=== PATIENT | male | born 1945 | race Caucasian/White ===

== ENCOUNTER 2023-11-27 11:05 | Inpatient (IN) ==
[2023-11-27] MEDS ORDERED: Lactated Ringers 1000 ml BAG 1,000 ML IV ONE ×2 (11:45→13:01)
[2023-11-27 12:18] LABS: ABS Basophils 0.2 10^3/uL (0.0-0.1); ABS Lymphocytes 1.6 10^3/uL (1.0-4.8); ABS Monocytes 1.4 10^3/uL (0.0-1.1); ABS Neutrophils 11.4 10^3/uL (1.5-7.6); Hematocrit 36.6 % (38-53); Hemoglobin 11.8 g/dL (13.2-16.3); Lymphocyte % 11.1 %; Mean Corpuscular Hemoglobin 25.3 pg (27-33); Mean Corpuscular Hgb Conc 32.3 g/dL (31-36); Mean Corpuscular Volume 78.5 fL (80-97); Mean Platelet Volume 7.1 fL (7.5-11.2); Platelet Count 484 10^3/uL (150-450); Red Blood Count 4.66 10^6/uL (4.06-5.63); Red Cell Distribution Width 21.1 % (12-17); White Blood Count 14.6 10^3/uL (3.6-10.2)
[2023-11-27 12:41] LABS: ALT 73 U/L (7-52); Albumin 3.6 g/dL (3.2-5.2); Albumin/Globulin Ratio 0.8 (1-3); Alkaline Phosphatase 286 U/L (35-149); Anion Gap 15 mmol/L (2-16); Blood Urea Nitrogen 65 mg/dL (6-24); C Reactive Protein 183.21 mg/L (<8.01); CO2 Carbon Dioxide 20 mmol/L (22-32); Calcium 8.6 mg/dL (8.6-10.3); Chloride 101 mmol/L (101-111); Creatinine, Serum 1.78 mg/dL (0.67-1.17); Globulin 4.8 g/dL (2-4); Glucose 198 mg/dL (70-100); Magnesium 1.4 mg/dL (1.9-2.7); Sodium 136 mmol/L (135-145); Total Bilirubin 0.9 mg/dL (0.2-1.0); Total Protein 8.4 g/dL (6.4-8.9); eGFR CKD-EPI 39.3 (>60)
[2023-11-27] MEDS ORDERED: Magnesium Sulfate 2 gm BAG 2 GM/50 ML BAG IVPB ONE (13:01)
[2023-11-27] MEDS ORDERED: Iodixanol (CONTRAST) 320 MG/ML 100 ML SDV IV ONE (13:29)
[2023-11-27] MEDS ORDERED: Piperacillin/Tazobac 3.375 BAG 3.375 GM/100 ML BAG IV ONE ×3 (14:24→21:00)
[2023-11-27] MEDS ORDERED: Lactated Ringers 1000 ml BAG 1,000 ML IV SCH (17:00)
[2023-11-27 18:15] LABS: Calcium 8.4 mg/dL (8.6-10.3); Creatinine, Serum 1.51 mg/dL (0.67-1.17); eGFR CKD-EPI 47.9 (>60)
[2023-11-27] MEDS ORDERED: Zosyn per Pharmacy NOTE FOLLOW UP SCH (20:24)
[2023-11-27] MEDS ORDERED: Ondansetron 4 mg VIAL 2 MG/ML 2 ml VIAL IV PRN (20:24)
[2023-11-27] MEDS ORDERED: Dextrose 50% Syringe 50 ml 25 GM/50 ML SYRINGE IV PUSH PRN (20:24)
[2023-11-27] MEDS ORDERED: Calcium Polycarbophil 625mg TB PO SCH (21:00)
[2023-11-27] MEDS: Sodium Bicarb 650 mg (ANTACID) TAB PO SCH (22:29)
[2023-11-27] MEDS: Lactated Ringers 1000 ml BAG 1,000 ML IV SCH (22:32)
[2023-11-27] MEDS: Enoxaparin 30 MG/0.3 ML SYR SUBCUT SCH (22:39)
[2023-11-27] MEDS: Insulin GLARGINE 100 un/ml 10 ml VIAL SUBCUT SCH (22:55)
[2023-11-28] MEDS: Calcium Polycarbophil 625mg TB PO SCH ×3 (00:58→23:22)
[2023-11-28] MEDS ORDERED: ZOSYN 3.375 GM Q8H per EXTENDED INFUSION IV SCH ×2 (03:30)
[2023-11-28 06:44] LABS: ABS Basophils 0.1 10^3/uL (0.0-0.1); ABS Lymphocytes 1.1 10^3/uL (1.0-4.8); ABS Monocytes 1.1 10^3/uL (0.0-1.1); ABS Neutrophils 8.6 10^3/uL (1.5-7.6); ABS Nucleated RBC 0.01 10^3/ul; Eosinophil % 0.3 %; Hematocrit 32.7 % (38-53); Hemoglobin 10.4 g/dL (13.2-16.3); Lymphocyte % 10.2 %; Mean Corpuscular Hemoglobin 24.8 pg (27-33); Mean Corpuscular Hgb Conc 31.8 g/dL (31-36); Mean Platelet Volume 6.8 fL (7.5-11.2); Platelet Count 346 10^3/uL (150-450); Red Blood Count 4.19 10^6/uL (4.06-5.63); Red Cell Distribution Width 21.9 % (12-17)
[2023-11-28 07:01] LABS: Albumin 2.8 g/dL (3.2-5.2); Albumin/Globulin Ratio 0.8 (1-3); Creatinine, Serum 1.24 mg/dL (0.67-1.17); Globulin 3.6 g/dL (2-4); Potassium 3.9 mmol/L (3.5-5.0); Total Protein 6.4 g/dL (6.4-8.9); eGFR CKD-EPI 60.6 (>60)
[2023-11-28 08:15] LABS: Magnesium 1.7 mg/dL (1.9-2.7)
[2023-11-28] MEDS: Lactated Ringers 1000 ml BAG 1,000 ML IV SCH ×2 (08:29→18:24)
[2023-11-28] MEDS ORDERED: DAPAGLIFLOZIN 5 MG TAB (NF) PO SCH (09:00)
[2023-11-28] MEDS: Insulin GLARGINE 100 un/ml 10 ml VIAL SUBCUT SCH ×2 (09:28→22:50)
[2023-11-28] MEDS: Sodium Bicarb 650 mg (ANTACID) TAB PO SCH ×2 (09:29→23:12)
[2023-11-28] MEDS: Aspirin EC 81 mg TAB.EC (enteric coated) PO SCH (09:29)
[2023-11-28] MEDS ORDERED: Magnesium Sulfate 2 gm BAG 2 GM/50 ML BAG IVPB ONE (09:58)
[2023-11-28 13:31] LABS: Carcinoembryonic Antigen 4.3 ng/mL (0.1-5.0)
[2023-11-28 15:28] LABS: % Iron Saturation 11 % (15-55); .Transferrin 128 mg/dL (203-362); Iron < 20 ug/dL (50-212); Total Iron Binding Capacity 179 mcg/dL (250-450); Unsaturated Iron Binding 159 ug/dL
[2023-11-28 21:44] LABS: Ferritin 1792.1 ng/mL (24-336)
[2023-11-28] MEDS: Enoxaparin 30 MG/0.3 ML SYR SUBCUT SCH (23:13)
[2023-11-29] MEDS: Lactated Ringers 1000 ml BAG 1,000 ML IV SCH ×2 (04:33→15:07)
[2023-11-29 06:27] LABS: ABS Basophils 0.1 10^3/uL (0.0-0.1); ABS Eosinophils 0.1 10^3/uL (0.0-0.5); ABS Monocytes 0.8 10^3/uL (0.0-1.1); ABS Neutrophils 8.3 10^3/uL (1.5-7.6); ABS Nucleated RBC 0.02 10^3/ul; Eosinophil % 0.6 %; Hematocrit 32.2 % (38-53); Hemoglobin 10.2 g/dL (13.2-16.3); Lymphocyte % 17.4 %; Mean Corpuscular Hemoglobin 24.9 pg (27-33); Mean Corpuscular Hgb Conc 31.8 g/dL (31-36); Mean Corpuscular Volume 78.3 fL (80-97); Mean Platelet Volume 7.5 fL (7.5-11.2); Nucleated Red Blood Cells % 0.1 %/100WBC (0.0-0.8); Platelet Count 344 10^3/uL (150-450); Red Cell Distribution Width 21.2 % (12-17); White Blood Count 11.2 10^3/uL (3.6-10.2)
[2023-11-29 06:43] LABS: Calcium 8.6 mg/dL (8.6-10.3); Creatinine, Serum 1.05 mg/dL (0.67-1.17); Magnesium 2.2 mg/dL (1.9-2.7); Potassium 3.5 mmol/L (3.5-5.0)
[2023-11-29] MEDS: Aspirin EC 81 mg TAB.EC (enteric coated) PO SCH (09:35)
[2023-11-29] MEDS: Calcium Polycarbophil 625mg TB PO SCH ×2 (09:35→22:43)
[2023-11-29] MEDS: Sodium Bicarb 650 mg (ANTACID) TAB PO SCH ×2 (09:36→22:44)
[2023-11-29] MEDS ORDERED: Albuterol HFA INHALER 8 gm MDI INH PRN (10:06)
[2023-11-29] MEDS: Insulin GLARGINE 100 un/ml 10 ml VIAL SUBCUT SCH ×3 (10:11→22:43)
[2023-11-29] MEDS: SPIRIVA Respimat (tiotropium) 2.5 mcg/inh Inhaler INH SCH (16:09)
[2023-11-29] MEDS ORDERED: Lactated Ringers 1000 ml BAG 1,000 ML IV ONE (18:40)
[2023-11-29] MEDS: Enoxaparin 40 MG/0.4 ML SYR SUBCUT SCH (22:43)
[2023-11-30 06:55] LABS: ABS Basophils 0.1 10^3/uL (0.0-0.1); ABS Eosinophils 0.2 10^3/uL (0.0-0.5); ABS Lymphocytes 1.7 10^3/uL (1.0-4.8); ABS Monocytes 1.1 10^3/uL (0.0-1.1); ABS Neutrophils 7.1 10^3/uL (1.5-7.6); ABS Nucleated RBC 0.01 10^3/ul; Eosinophil % 1.6 %; Hematocrit 29.2 % (38-53); Hemoglobin 9.4 g/dL (13.2-16.3); Lymphocyte % 17.2 %; Mean Corpuscular Hemoglobin 25.2 pg (27-33); Mean Corpuscular Hgb Conc 32.2 g/dL (31-36); Mean Corpuscular Volume 78.2 fL (80-97); Nucleated Red Blood Cells % 0.1 %/100WBC (0.0-0.8); Platelet Count 373 10^3/uL (150-450); Red Blood Count 3.73 10^6/uL (4.06-5.63); Red Cell Distribution Width 21.4 % (12-17); White Blood Count 10.2 10^3/uL (3.6-10.2)
[2023-11-30 07:23] LABS: Calcium 8.4 mg/dL (8.6-10.3); Creatinine, Serum 1.04 mg/dL (0.67-1.17); Potassium 3.9 mmol/L (3.5-5.0); eGFR CKD-EPI 74.9 (>60)
[2023-11-30] MEDS: SPIRIVA Respimat (tiotropium) 2.5 mcg/inh Inhaler INH SCH (08:00)
[2023-11-30] MEDS: Calcium Polycarbophil 625mg TB PO SCH ×2 (09:59→23:11)
[2023-11-30] MEDS: Sodium Bicarb 650 mg (ANTACID) TAB PO SCH ×2 (09:59→23:10)
[2023-11-30] MEDS: Aspirin EC 81 mg TAB.EC (enteric coated) PO SCH (09:59)
[2023-11-30] MEDS: Insulin GLARGINE 100 un/ml 10 ml VIAL SUBCUT SCH ×2 (10:00→23:10)
[2023-11-30] MEDS: Lactated Ringers 1000 ml BAG 1,000 ML IV SCH (16:57)
[2023-11-30] MEDS: Enoxaparin 40 MG/0.4 ML SYR SUBCUT SCH (23:13)
[2023-12-01] MEDS: Lactated Ringers 1000 ml BAG 1,000 ML IV SCH ×2 (03:47→22:37)
[2023-12-01] MEDS: SPIRIVA Respimat (tiotropium) 2.5 mcg/inh Inhaler INH SCH (07:34)
[2023-12-01] MEDS: Calcium Polycarbophil 625mg TB PO SCH ×2 (10:01→22:42)
[2023-12-01] MEDS: Sodium Bicarb 650 mg (ANTACID) TAB PO SCH ×2 (10:02→22:42)
[2023-12-01] MEDS: Insulin GLARGINE 100 un/ml 10 ml VIAL SUBCUT SCH ×2 (10:02→22:54)
[2023-12-01] MEDS: Aspirin EC 81 mg TAB.EC (enteric coated) PO SCH (10:02)
[2023-12-01] MEDS: Enoxaparin 40 MG/0.4 ML SYR SUBCUT SCH (22:40)
[2023-12-02 06:08] LABS: ABS Basophils 0.1 10^3/uL (0.0-0.1); ABS Eosinophils 0.3 10^3/uL (0.0-0.5); ABS Lymphocytes 2.1 10^3/uL (1.0-4.8); ABS Monocytes 0.7 10^3/uL (0.0-1.1); ABS Neutrophils 6.7 10^3/uL (1.5-7.6); ABS Nucleated RBC 0.01 10^3/ul; Eosinophil % 3.1 %; Hematocrit 29.2 % (38-53); Hemoglobin 9.4 g/dL (13.2-16.3); Lymphocyte % 21.4 %; Mean Corpuscular Hemoglobin 25.1 pg (27-33); Mean Corpuscular Hgb Conc 32.1 g/dL (31-36); Mean Corpuscular Volume 78.1 fL (80-97); Mean Platelet Volume 7.1 fL (7.5-11.2); Nucleated Red Blood Cells % 0.1 %/100WBC (0.0-0.8); Platelet Count 449 10^3/uL (150-450); Red Blood Count 3.74 10^6/uL (4.06-5.63); Red Cell Distribution Width 21.5 % (12-17); White Blood Count 9.8 10^3/uL (3.6-10.2)
[2023-12-02 06:31] LABS: Calcium 8.9 mg/dL (8.6-10.3); Creatinine, Serum 1.01 mg/dL (0.67-1.17); Potassium 4.4 mmol/L (3.5-5.0); eGFR CKD-EPI 77.6 (>60)
[2023-12-02] MEDS: Sodium Bicarb 650 mg (ANTACID) TAB PO SCH ×2 (08:15→22:08)
[2023-12-02] MEDS: Calcium Polycarbophil 625mg TB PO SCH ×2 (08:15→22:07)
[2023-12-02] MEDS: Aspirin EC 81 mg TAB.EC (enteric coated) PO SCH (08:16)
[2023-12-02] MEDS: SPIRIVA Respimat (tiotropium) 2.5 mcg/inh Inhaler INH SCH (08:28)
[2023-12-02] MEDS: Insulin GLARGINE 100 un/ml 10 ml VIAL SUBCUT SCH ×2 (08:40→22:17)
[2023-12-02] MEDS: Lactated Ringers 1000 ml BAG 1,000 ML IV SCH (08:42)
[2023-12-02] MEDS: Enoxaparin 40 MG/0.4 ML SYR SUBCUT SCH (21:54)
[2023-12-03] MEDS: SPIRIVA Respimat (tiotropium) 2.5 mcg/inh Inhaler INH SCH (07:06)
[2023-12-03] MEDS: Calcium Polycarbophil 625mg TB PO SCH ×2 (08:13→20:21)
[2023-12-03] MEDS: Sodium Bicarb 650 mg (ANTACID) TAB PO SCH ×2 (08:13→20:20)
[2023-12-03] MEDS: Aspirin EC 81 mg TAB.EC (enteric coated) PO SCH (08:13)
[2023-12-03] MEDS: Insulin GLARGINE 100 un/ml 10 ml VIAL SUBCUT SCH ×2 (08:28→20:22)
[2023-12-03] MEDS: Enoxaparin 40 MG/0.4 ML SYR SUBCUT SCH (20:21)
[2023-12-04 06:37] LABS: Hematocrit 31.3 % (38-53); Mean Corpuscular Hemoglobin 24.7 pg (27-33); Mean Corpuscular Hgb Conc 32.1 g/dL (31-36); Mean Corpuscular Volume 76.8 fL (80-97); Mean Platelet Volume 6.9 fL (7.5-11.2); Platelet Count 555 10^3/uL (150-450); Red Blood Count 4.07 10^6/uL (4.06-5.63); White Blood Count 12.4 10^3/uL (3.6-10.2)
[2023-12-04 06:56] LABS: Calcium 8.8 mg/dL (8.6-10.3); Creatinine, Serum 0.92 mg/dL (0.67-1.17); Potassium 4.1 mmol/L (3.5-5.0); eGFR CKD-EPI 86.7 (>60)
[2023-12-04] MEDS: Insulin GLARGINE 100 un/ml 10 ml VIAL SUBCUT SCH (08:48)
[2023-12-04] MEDS: Aspirin EC 81 mg TAB.EC (enteric coated) PO SCH (08:49)
[2023-12-04] MEDS: Sodium Bicarb 650 mg (ANTACID) TAB PO SCH (08:49)
[2023-12-04] MEDS: Calcium Polycarbophil 625mg TB PO SCH (08:49)
[2023-12-04] MEDS: SPIRIVA Respimat (tiotropium) 2.5 mcg/inh Inhaler INH SCH (09:48)
[2023-12-04 14:12] VITALS: BP 130/67
== END 2023-12-04 16:00 | DRG 720 ==
LOC: ED 11:05 → SUATTDRO 16:20 → EDHOLD 16:20 → MED 20:25
PROVIDERS: ADMIT Internal Medicine; ATTEND Internal Medicine